=== PATIENT | female | born 1990 | race Caucasian/White ===

== ENCOUNTER 2016-06-29 17:37 | Emergency (ER) | payer BC, OTHER ==
[2016-06-29 18:01] VITALS: BP 124/53; PULSE 100; TEMP 98.8; BMI 21.4
--- NOTE | 2016-06-29 21:17 | PDOC ---
History of Present Illness - General Chief Complaint: Abscess Boil Stated Complaint: GROIN PAIN Time Seen by Provider: 06/29/16 21:06 - History of Present Illness Initial Comments: 06/29/16 23:18 not seen by Jocelynn COPE seen by LARON Garcia Past History - Past Medical History Allergies/Adverse Reactions: Allergies Allergy/AdvReac Type Severity Reaction Status Date / Time peanut Allergy Severe Difficulty Verified 06/29/16 17:47 Breathing Home Medications: Ambulatory Orders Cyclobenzaprine HCl [Flexeril -] 10 mg PO HS #7 tablet 01/18/14 Ibuprofen [Motrin -] 600 mg PO TID #21 tablet 01/18/14 Oxycodone HCl/Acetaminophen [Percocet 5-325 mg Tablet -] 1 - 2 tab PO Q6H #4 tablet 01/18/14 Cephalexin [Keflex] 500 mg PO TID #21 capsule 06/29/16 Other medical history: denies - Immunization History Immunization Up to Date: Yes - Psycho/Social/Smoking Cessation Hx Anxiety: No Suicidal Ideation: No Smoking Status: No Smoking History: Never smoked Have you smoked in the past 12 months: No Number of Cigarettes Smoked Daily: 0 Information on smoking cessation initiated: No Hx Alcohol Use: No Drug/Substance Use Hx: Yes Substance Use Type: Marijuana *Physical Exam - Vital Signs Last Vital Signs Temp Pulse Resp BP Pulse Ox 98.8 F 100 H 20 124/53 97 06/29/16 17:47 06/29/16 17:47 06/29/16 17:47 06/29/16 17:47 06/29/16 17:47 *DC/Admit/Observation/Transfer Diagnosis at time of Disposition: Abscess - Discharge Dispostion Disposition: HOME Condition at time of disposition: Improved - Prescriptions Prescriptions: Cephalexin [Keflex] 500 mg PO TID #21 capsule - Referrals Referrals: Gracie Magaña [Primary Care Provider] - - Patient Instructions Printed Discharge Instructions: DI for Incision and Drainage of a Skin Abscess Additional Instructions: Warm soaks/compresses Take tylenol as needed for pain Keflex 500mg take 1 tablet by mouth three times a day for 7 days Wound check in 2 days Return to the ER for any signs of further infection: red streaks, increase swelling, severe pain, increase drainage
[2016-06-29] MEDS ORDERED: ACETAMINOPHEN 500 MG TABLET (FP) PO ONE (22:10)
[2016-06-29] MEDS ORDERED: ACETAMINOPHEN 500 MG TABLET (FP) ONE (22:16)
--- NOTE | 2016-06-29 23:06 | PDOC ---
*Physical Exam - Vital Signs Last Vital Signs Temp Pulse Resp BP Pulse Ox 98.8 F 100 H 20 124/53 97 06/29/16 17:47 06/29/16 17:47 06/29/16 17:47 06/29/16 17:47 06/29/16 17:47 ED Treatment Course - ADDITIONAL ORDERS Additional order review: Laboratory Results 06/29/16 22:15 Urine HCG, Qual Negative - Medications Given in the ED: ED Medications Discontinued Medications Generic Name Dose Route Start Last Admin Trade Name Leonie PRN Reason Stop Dose Admin Acetaminophen 1,000 mg 06/29/16 22:10 06/29/16 22:24 Tylenol - PO 06/29/16 22:11 1,000 mg ONCE ONE Administration *DC/Admit/Observation/Transfer Diagnosis at time of Disposition: Abscess - Discharge Dispostion Disposition: HOME Condition at time of disposition: Improved - Patient Instructions Printed Discharge Instructions: DI for Incision and Drainage of a Skin Abscess Additional Instructions: Warm soaks/compresses Take tylenol as needed for pain Keflex 500mg take 1 tablet by mouth three times a day for 7 days Wound check in 2 days Return to the ER for any signs of further infection: red streaks, increase swelling, severe pain, increase drainage
== END 2016-06-29 23:13 | disposition home or self-care (01) ==
LOC: JERFT 17:37 → JER 17:37 → JERFT 23:13
PROC: 0U9LXZZ Drainage of Vestibular Gland, External Approach (ICD-10-PCS; principal; 2016-06-29)
DX: N75.1 Abscess of Bartholin's gland (principal)
CPT/HCPCS: 84703; 87070; 87186; 87205; 99281-25

== ENCOUNTER 2016-07-01 13:10 | Emergency (ER) | payer OTHER, BC ==
[2016-07-01 13:20] VITALS: BP 109/68; PULSE 75; TEMP 98.3; BMI 21.4
--- NOTE | 2016-07-01 14:08 | PDOC ---
History of Present Illness - General Chief Complaint: Revisit,Wound Recheck Stated Complaint: FOLLOW UP, WOUND CHECK Time Seen by Provider: 07/01/16 14:06 History Source: Patient Exam Limitations: No Limitations - History of Present Illness Initial Comments: 07/01/16 14:14 Chief complaint: Here for wound check of external vaginal area History of present illness: Patient is a 25 year old female with no significant medical problems here today for wound check of abscess that was I & D's here 2 days ago in her right external vaginal area. Patient reports that she shaved pubic hair in that area. She has been taking keflex antibiotic that was ordered. Reports that her boyfriend was recently treated for MRSA of the finger and face. Pt. has not had sex since last visit 06/29/16 when urine hcg was negative. Pt.' wound culture presumptive MRSA. 07/01/16 14:47 07/01/16 14:53 07/01/16 19:13 07/01/16 19:14 07/01/16 19:14 Timing/Duration: changing over time Severity: mild Associated Symptoms: reports: denies symptoms Past History - Past Medical History Allergies/Adverse Reactions: Allergies Allergy/AdvReac Type Severity Reaction Status Date / Time peanut Allergy Severe Difficulty Verified 07/01/16 13:17 Breathing Home Medications: Ambulatory Orders Cephalexin [Keflex] 500 mg PO TID #21 capsule 06/29/16 Sulfamethoxazole/Trimethoprim [Bactrim Ds -] 1 tab PO BID #14 tablet MDD 2 07/01 - Immunization History Immunization Up to Date: Yes - Psycho/Social/Smoking Cessation Hx Anxiety: No Suicidal Ideation: No Smoking Status: No Smoking History: Never smoked Have you smoked in the past 12 months: No Number of Cigarettes Smoked Daily: 0 Information on smoking cessation initiated: No Hx Alcohol Use: No Drug/Substance Use Hx: No Substance Use Type: None Review of Systems - Review of Systems Able to Perform ROS?: Yes Constitutional: No: Symptoms Reported HEENTM: No: Symptoms Reported Respiratory: No: Symptoms reported Cardiac (ROS): No: Symptoms Reported ABD/GI: No: Symptoms Reported : No: Symptoms Reported Musculoskeletal: No: Symptoms Reported Integumentary: Yes: Other (wound rt. external vagina area with packing (I&D here on 06/29/16) Neurological: No: Symptoms reported *Physical Exam - Vital Signs Last Vital Signs Temp Pulse Resp BP Pulse Ox 98.3 F 75 17 109/68 100 07/01/16 13:18 07/01/16 13:18 07/01/16 13:18 07/01/16 13:18 07/01/16 13:18 - Physical Exam General Appearance: Yes: Appropriately Dressed Integumentary: positive: Other (packing in place rt external vaginal area with no surrouding erythema or discharge, slight edema of surrounding area) Neurologic: positive: Alert, Normal Response, Responsive Procedures - Consent Consent obtained: From Patient - Additional Procedures Progress: 07/01/16 14:52 Packing removed from external vaginal area further discharge from wound noted, no surrounding erythema, slight edema of surrounding area irrigated with normal saline 0.9% and 4 x 4 placed in a area without tape Medical Decision Making - Medical Decision Making 07/01/16 14:48 Patient is a 25 year old female with no significant medical problems here today for wound check of abscess that was I & D's here 2 days ago in her right external vaginal area. Patient reports that she shaved pubic hair in that area. She has been taking keflex antibiotic that was ordered. Reports that her boyfriend was recently treated for MRSA of the finger and face. wound check external rt. vaginal area PLAN: packing removal from wound add BActrim DS one tab now than bid for 7 days 07/01/16 14:55 *DC/Admit/Observation/Transfer Diagnosis at time of Disposition: Visit for wound check - Discharge Dispostion Disposition: HOME Condition at time of disposition: Stable - Prescriptions Prescriptions: Sulfamethoxazole/Trimethoprim [Bactrim Ds -] 1 tab PO BID #14 tablet MDD 2 - Referrals Referrals: Gracie Magaña [Primary Care Provider] - - Patient Instructions Additional Instructions: You may cleanse wound as usual maybe with antibacterial soap and water Your BUSINESS TRAVEL CONSULTANT doctor within the next week Return to emergency room if symptoms worsen increased swelling of the area or fever or redness DO NOT SHAVE PUBIC AREA Patient voiced understanding of discharge instructions and all questions were answered
[2016-07-01] MEDS ORDERED: SULFAMETHOXAZOLE/TRIMETHOPRIM 800MG/160MG D.S. TABLET PO ONE (14:56)
[2016-07-01] MEDS ORDERED: SULFAMETHOXAZOLE/TRIMETHOPRIM 800MG/160MG D.S. TABLET ONE (14:59)
== END 2016-07-01 15:01 | disposition home or self-care (01) ==
LOC: JERFT 13:10
DX: Z48.01 Encounter for change or removal of surgical wound dressing (principal)
CPT/HCPCS: 99281-25

== ENCOUNTER 2017-10-02 00:22 | Emergency (ER) | payer BC, OTHER ==
[2017-10-02 00:56] VITALS: BP 126/64; PULSE 78; TEMP 98.6; BMI 22.8
== END 2017-10-02 01:35 | disposition left against medical advice (07) ==
LOC: JER 00:22
DX: Z53.21 Procedure and treatment not carried out due to patient leaving prior to being seen by health care provider (principal)
CPT/HCPCS: 99281-25

== ENCOUNTER 2017-10-02 01:42 | Emergency (ER) | payer BC, OTHER ==
[2017-10-02 01:52] VITALS: BP 111/65; PULSE 73; TEMP 98.7; BMI 22.8
--- NOTE | 2017-10-02 01:52 | PDOC ---
History of Present Illness - General Chief Complaint: Allergic Reaction Stated Complaint: EYE IRRITATION Time Seen by Provider: 10/02/17 01:52 History Source: Patient Exam Limitations: No Limitations - History of Present Illness Initial Comments: 10/02/17 01:56 This is a 26-year-old female who comes in complaining of ALLERGIES and her eyes are itchy, watery, and puffy. SHe is been taking Claritin once a day as well as some eyedrops. Patient comes in wondering if there is anything else she can take on put on her eyes to help with the symptoms. the patient denies any pain. Patient denies any fevers or chills. Patient denies any other complaints. PAST MEDICAL HISTORY: no significant history PAST SURGICAL HISTORY: no significant history FAMILY HISTORY: no pertinant history SOCIAL HISTORY: Pt lives with family and is employed. MEDICATIONS: reviewed ALLERGIES: As per nursing notes Review of Systems General: No fevers or chills, no weakness, no weight loss HEENT: No change in vision. No sore throat,. No ear pain, watery and itchy eyes CardioVascular: No chest pain or shortness of breath Respiratory:No cough, or wheezing. Gastrointestinal: no nausea, vomitting, diarrhea or constipation, No rectal bleeding Genitourinary: No dysuria, hematuria, or frequency Musculoskeletal: No joint or muscle pain or swelling Neurologic: No headache, vertigo, dizziness or loss of consciousness Psychiatric: nor depression Skin: No rashes or easy bruising Endocrine: no increased thirst or abnormal weight change Allergic: no skin or latex allergy All other systems reviewed and normal GENERAL: The patient is awake, alert, and fully oriented, in no acute distress. HEAD: Normal with no signs of trauma. EYES: Pupils equal, round and reactive to light, extraocular movements intact, sclera anicteric, conjunctiva clear. Periorbital tissue is some mild edema with erythema increased in warmth. EXTREMITIES: Normal range of motion, no edema. NEUROLOGICAL: Normal speech, normal gait. grossly intact PSYCH: Normal mood, normal affect. SKIN: Warm, Dry, normal turgor, no rashes or lesions noted. Assessment and plan: This is a 26-year-old female with ALLERGIES and her eyes itching and bothering her. Discussed with patient her [id number] options do not recommend that she take steroids as this is not a valid long-term solution. Recommended patient continue with her [id number] medications. Past History - Past Medical History Allergies/Adverse Reactions: Allergies Allergy/AdvReac Type Severity Reaction Status Date / Time peanut Allergy Severe Difficulty Verified 10/02/17 00:29 Breathing COPD: No - Immunization History Immunization Up to Date: Yes - Suicide/Smoking/Psychosocial Hx Smoking Status: No Smoking History: Never smoked Have you smoked in the past 12 months: No Number of Cigarettes Smoked Daily: 0 Hx Alcohol Use: No Drug/Substance Use Hx: Yes (marijuana) Substance Use Type: Marijuana *Physical Exam - Vital Signs Last Vital Signs Temp Pulse Resp BP Pulse Ox 98.7 F 73 16 111/65 100 10/02/17 01:43 10/02/17 01:43 10/02/17 01:43 10/02/17 01:43 10/02/17 01:43 *DC/Admit/Observation/Transfer Diagnosis at time of Disposition: Seasonal allergic conjunctivitis - Discharge Dispostion Disposition: HOME Condition at time of disposition: Good Admit: No - Referrals - Patient Instructions Additional Instructions: Continue to use the medications are [id number] including the Claritin or Sumaya, the eye drops and in addition you can also take Benadryl one or 2 tablets every 6 hours if needed Return to the emergency department immediately with ANY new, persistent or worsening symptoms. Continue any medications as previously prescribed by your physician. You should follow up with your primary doctor as soon as possible regarding today's emergency department visit. . Please make sure your doctor reviews the results of your emergency evaluation. Thank you for coming to the Emergency Department today for your care. It was a pleasure to see you today. Please note that your evaluation is INCOMPLETE until you follow-up with your doctor. - Post Discharge Activity
== END 2017-10-02 02:02 | disposition home or self-care (01) ==
LOC: FER 01:42
DX: H10.13 Acute atopic conjunctivitis, bilateral (principal)
CPT/HCPCS: 99282-25

== ENCOUNTER 2020-01-10 23:37 | Emergency (ER) | payer BC, OTHER ==
[2020-01-10 23:58] VITALS: BP 115/69; PULSE 83; TEMP 97.9; BMI 22.5
[2020-01-11] MEDS ORDERED: SODIUM CHLORIDE 0.9% 500 ML INFUS.BAG IV ONE (00:40)
[2020-01-11] MEDS ORDERED: FAMOTIDINE 20 MG/50 ML IVPB 20 MG/50 ML MG IVPB ONE (00:40)
[2020-01-11] MEDS ORDERED: MAG HYDROX/AL HYDROX/SIMETH -MYLANTA- ORAL SUSPENSION PO ONE (00:40)
[2020-01-11] MEDS ORDERED: LIDOCAINE VISCOUS 2% ORAL/TOP 20 ML UNIT-DOSE CUP MM ONE (00:40)
--- NOTE | 2020-01-11 00:41 | PDOC ---
History of Present Illness - General Chief Complaint: Chest Pain Stated Complaint: SOB/CHEST TIGHTNESS/NAUSEA/ Time Seen by Provider: 01/11/20 00:24 - History of Present Illness Initial Comments: Monica Bañuelos is a 29yo otherwise healthy woman who presents with epigastric pain and general malaise. She states that she had been feeling well throughout the day but had an episode of heartburn this evening that "came out of nowhere." She took pepto-bismol, which usually works for her heartburn, but only had minimal relief. She then felt a sensation of tightness in the epigastrium and became very anxious. She states that she started taking multiple deep breaths to calm herself down, but she then started to have tingling in her bilateral hands and face. The tingling has since spread to her back. She denies any numbness, weakness, lightheadedness, difficulty breathing, chest pain, or other symptoms. Ms Bañuelos does endorse frequent heartburn over the past week. She admits to eating fried fish and chips prior to experiencing heartburn tonight. 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 She started taking gingko supplements recently for the anxiety but takes no other medications or supplements, and she is otherwise feeling well. Past History - Medical History Allergies/Adverse Reactions: Allergies Allergy/AdvReac Type Severity Reaction Status Date / Time peanut Allergy Severe Difficulty Verified 01/10/20 23:56 Breathing COPD: No - Immunization History Immunization Up to Date: Yes - Psycho-Social/Smoking History Smoking Status: No Smoking History: Never smoked Have you smoked in the past 12 months: No Number of Cigarettes Smoked Daily: 0 Information on smoking cessation initiated: No 'Breaking Loose' booklet given: 10/02/17 - Substance Abuse Hx (Audit-C & DAST Scrn) How often the patient has a drink containing alcohol: Monthly or less How often the patient has six or more drinks on one occasion: Less than monthly Score: In Men: 4 or > Positive; In Women: 3 or > Positive: 2 Screen Result (Pos requires Nsg. Audit-10AR): Negative In the last yr the pt used illegal drug/Rx for NonMed reason: No Score: Yes response is considered Positive: 0 Screen Result (Positive result requires Nsg. DAST-10): Negative Review of Systems - Review of Systems Comments:: General: No fevers, no chills, no weight or appetite change, no malaise HEENT: No changes in vision, no changes in hearing, no congestion, no sore throat CV: No chest pain, no palpitations, no LE edema Pulm: No SOB, no cough, no wheezing GI: See HPI : No frequency, no urgency, no dysuria Musc: No back pain, no joint swelling, no recent injury Skin: No rash, no lesions, no erythema Endo: No excessive thirst, no heat/cold intolerance Heme: No unusual bruising or bleeding, no swollen glands Neuro: No syncope, +tingling in bilateral hands, back, and face. No focal weakness Vasc: No claudication Psych: No recent change in mood, no SI or HI *Physical Exam - Vital Signs Last Vital Signs Temp Pulse Resp BP Pulse Ox 97.9 F 83 16 115/69 100 01/10/20 23:53 01/10/20 23:53 01/10/20 23:53 01/10/20 23:53 01/10/20 23:53 - Physical Exam General: Comfortable, no acute distress HEENT: PERRL, EOMI, MMM, voice normal, normal neck ROM Cards: RRR, no murmur appreciated Pulm: Comfortable on room air, clear to auscultation bilaterally Abd: Soft, nondistended. Minimal epigastric and LUQ tenderness. No rebound, guarding, or peritoneal signs Ext: Atraumatic. No LE edema. ROM intact. WWP Skin: Normal color, no rashes or lesions Neuro: A&Ox3, CN grossly intact, normal speech, motor/sensory grossly intact and symmetric Psych: Mood appropriate to situation ED Treatment Course - LABORATORY CBC & Chemistry Diagram: 01/11/20 01:50 01/11/20 01:50 - RADIOLOGY Radiology Studies Ordered: Category Date Time Status CHEST PA & LAT [RAD] Stat Radiology 01/11/20 00:39 Ordered Medical Decision Making - Medical Decision Making 01/11/20 00:40 Monica Bañuelos is a 29yo otherwise healthy woman who presents with epigastric discomfort followed by diffuse tingling in her hands, face, and back. - Epigastric discomfort likely due to GERD/gastritis, secondary to fatty food today. Benign abdominal exam, unlikely cholecystitis/cholelithiasis, pancreatitis. No SOB, hypoxia, chest pain or other concerning symptoms - Diffuse tingling may be due to pt hyperventilating as she reports purposefully taking numerous deep breaths - CBC, CMP, CXR, EKG, preg - Pepcid, maalox 01/11/20 02:42 - Labs unremarkable - Urine preg negative - CXR to be completed - EKG w/ NSR, HR 66, normal axis, normal intervals, no t-wave or ST abnormalities. Normal EKG - Pt feeling improved - Plan to DC home pending xray results 01/11/20 03:16 - Xray without concerning findings - Will d/c with PMD follow up Discussed with Dr Shandra Varela PGY3 Discharge - Discharge Information Problems reviewed: Yes Clinical Impression/Diagnosis: Heartburn, Epigastric abdominal pain Condition: Stable Disposition: HOME - Admission No - Follow up/Referral Referrals: Donn Carmichael DO [Staff Physician] - - Patient Discharge Instructions Patient Printed Discharge Instructions: DI for Epigastric Pain Additional Instructions: Discharge Instructions: You were seen in the emergency department for heartburn and for lower chest/upper abdominal (epigastric) pain. Your blood tests, EKG, and chest xray did not show any concerning findings. Your symptoms improved with acid medication. Home Care and follow up: - You reported having heartburn frequently over the past week. Consider taking an acid medication such as Pepcid (famotidine) every day for the next 1-2 weeks until your symptoms resolve. This medication is available over the counter. - If you have continued symptoms, you may additionally take Maalox or Mylanta as needed. - Avoid greasy, spicy, or acidic foods or beverages, alcohol, and caffeine. These often worsen symptoms - Follow up with your regular doctor within the next 1-2 weeks - Seek immediate care for worsening symptoms, chest pain, difficulty breathing, lightheadedness, or any other medical emergency. - Post Discharge Activity
--- NOTE | 2020-01-11 00:51 | PDOC ---
Attending Attestation - Resident Resident Name: NicholeEliana - ED Attending Attestation I have performed the following: I have examined & evaluated the patient, The case was reviewed & discussed with the resident, I agree w/resident's findings & plan - HPI HPI: 01/11/20 01:45 29yo otherwise healthy woman who presents with epigastric pain and general malaise, dizziness, SOB. She states that she had been feeling well throughout the day but had an episode of heartburn this evening that "came out of nowhere." She ate fish and chips earlier this evening. She took pepto-bismol, which usually works for her heartburn, but only had minimal relief. She then felt a sensation of tightness in the epigastrium and became very anxious. She states that she started taking multiple deep breaths to calm herself down, but she then started to have tingling in her bilateral hands and face. The tingling has since spread to her back. She denies any numbness, weakness, lightheadedness, difficulty breathing, chest pain, or other symptoms. She admits to frequent heartburn over the past week. 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 She started taking gingko supplements recently for the anxiety but takes no other medications or supplements, and she is otherwise feeling well. - Physicial Exam PE: 01/11/20 00:50 Agree with the resident's HPI and PE as documented in the electronic medical record. NAD, well appearing, anxious, EOMI, PERRL, nl conjunctiva, anicteric; cranial nerves II through XII normal, neck supple. lungs clear, RRR, abdomen soft nontender. no rebound, guarding. Back nontender. GRACE x4, no focal neuro deficits. No peripheral edema. normal color for ethnicity, WWP. no calf tenderness. 01/11/20 03:26 - Medical Decision Making 01/11/20 00:51 Vital Signs Temp Pulse Resp BP Pulse Ox 97.9 F 83 16 115/69 100 01/10/20 23:53 01/10/20 23:53 01/10/20 23:53 01/10/20 23:53 01/10/20 23:53 01/11/20 00:51 vitals reviewed, wnl, reassuring. no respiratory distress nontoxic, no systemic findings DDx chest pain: ACS, coronary vasospasm, NSTEMI, arrhythmia, unstable angina, PE, dissection, PUD, esophageal spasm, GERD, gastritis, costochondritis, pneumonia, pleurisy, pericarditis/myocarditis. dehydration, electrolyte/me tabolic derangements. Considered but clinically doubt based on HPI and PE: Low suspicion for pulmonary embolism or dissection. perc negative, so unlikely PE. Interpreted by ED Physician: CXR (2 view): no acute abnormality: no infiltrates, bones appear intact and structures normal alignment, cardiac silhouette within normal limits. no free air under diaphragm, no pneumothorax. EKG normal sinus rhythm 66 beats per, no interval abnormalities, narrow QRS, ST and T wave segments and morphology normal. Chest pain HEART score 0 which denotes Low risk and probability for ACS, less than 1.7% risk for MACE at 4-6 wks No evidence of ACS, pericarditis, myocarditis, pulmonary embolism, pneumothorax, pneumonia, Zoster, or esophageal perforation. Historically not abrupt in onset, tearing or ripping, pulses symmetric, no evidence of aortic dissection. DC stable condition, return precautions. supportive care, hydration, relaxation, biofeedback, minimize triggers/food related exacerbants for her GERD/epigastric sx. PCP followup as needed 01/11/20 03:26 Heart Score/ECG Review - History History: Slightly suspicious - Electrocardiogram EKG: Normal - Age Age: </= 45 - Risk Factors Based on the list above the patient has:: No risk factors known - Troponin Troponin: </= normal limit - Score Heart Score - Total: 0 #1 ECG reviewed & interpreted by me at: 23:55 General ECG Interpretation: Sinus Rhythm, Normal Rate, Normal Intervals 01/11/20 01:48 EKG normal sinus rhythm 66 beats per, no interval abnormalities, narrow QRS, ST and T wave segments and morphology normal. Discharge - Discharge Information Problems reviewed: Yes Clinical Impression/Diagnosis: Heartburn, Epigastric abdominal pain Condition: Stable Disposition: HOME - Admission No - Follow up/Referral - Patient Discharge Instructions Patient Printed Discharge Instructions: DI for Epigastric Pain Additional Instructions: Discharge Instructions: You were seen in the emergency department for heartburn and for lower chest/upper abdominal (epigastric) pain. Your blood tests, EKG, and chest xray did not show any concerning findings. Your symptoms improved with acid medication. Home Care and follow up: - You reported having heartburn frequently over the past week. Consider taking an acid medication such as Pepcid (famotidine) every day for the next 1-2 weeks until your symptoms resolve. This medication is available over the counter. - If you have continued symptoms, you may additionally take Maalox or Mylanta as needed. - Avoid greasy, spicy, or acidic foods or beverages, alcohol, and caffeine. These often worsen symptoms - Follow up with your regular doctor within the next 1-2 weeks - Seek immediate care for worsening symptoms, chest pain, difficulty breathing, lightheadedness, or any other medical emergency. - Post Discharge Activity
[2020-01-11] MEDS ORDERED: FAMOTIDINE 20 MG TABLET PO ONE (01:44)
[2020-01-11] MEDS ORDERED: LIDOCAINE VISCOUS 2% ORAL/TOP 20 ML UNIT-DOSE CUP ONE (01:48)
[2020-01-11] MEDS ORDERED: FAMOTIDINE 20 MG TABLET ONE (01:48)
[2020-01-11] MEDS ORDERED: MAG HYDROX/AL HYDROX/SIMETH 30 ML UNIT-DOSE CUP ONE (01:49)
[2020-01-11 02:05] LABS: BASO % 1.3 % (0-2.0); EOS % 2.7 % (0-4.5); HEMATOCRIT 40.8 % (32.4-45.2); HEMOGLOBIN 13.7 GM/dL (10.7-15.3); LYMPH % 36.2 % (8-40); MCH 29.5 pg (25.7-33.7); MCHC 33.6 g/dl (32.0-36.0); MEAN CELL VOLUME 87.7 fl (80-96); MEAN PLT VOLUME 8.7 fl (7.5-11.1); MONO % 6.4 % (3.8-10.2); NEUT % 53.4 % (42.8-82.8); PLATELET COUNT 197 K/MM3 (134-434); RBC 4.65 M/mm3 (3.60-5.2); WHITE BLOOD COUNT 8.3 K/mm3 (4.0-10.0)
[2020-01-11 02:36] LABS: ALBUMIN 4.1 g/dl (3.4-5.0); BILIRUBIN,TOTAL 0.3 mg/dL (0.2-1); BLOOD UREA NITROGEN 10.3 mg/dL (7-18); CALCIUM 9.2 mg/dL (8.5-10.1); CREATININE 0.7 mg/dL (0.55-1.3); POTASSIUM 3.8 mmol/L (3.5-5.1); TOT PROT 7.1 g/dl (6.4-8.2)
--- NOTE | 2020-01-11 09:09 | EKG ---
Test Reason : Blood Pressure : / mmHG Vent. Rate : 066 BPM Atrial Rate : 066 BPM P-R Int : 180 ms QRS Dur : 090 ms QT Int : 394 ms P-R-T Axes : 004 066 039 degrees QTc Int : 413 ms NORMAL SINUS RHYTHM NORMAL ECG WHEN COMPARED WITH ECG OF 17-MAR-2012 04:31, NO SIGNIFICANT CHANGE WAS FOUND Confirmed by Brian Rivera ([id number]) on 01/11/2020 9:08:42 AM Referred By: Confirmed By:Brian Rivera
== END 2020-01-11 03:40 | disposition home or self-care (01) ==
LOC: JER 23:37
DX: R10.13 Epigastric pain (principal)
CPT/HCPCS: 36415; 71046-TC-FY; 80053; 84703; 85025; 93005; 93010; 99285-25

== ENCOUNTER 2024-05-19 00:49 | Emergency (ER) | payer OTHER ==
[2024-05-19 01:01] VITALS: BP 134/82; PULSE 72; RESP 16; TEMP 98.7; BMI 25.1
[2024-05-19] MEDS ORDERED: morphine SULFATE 4 MG/ML VIAL ONE ×2 (01:13→01:58)
[2024-05-19] MEDS ORDERED: ONDANSETRON 4 MG/2 ML VIAL ONE ×2 (01:13→02:30)
[2024-05-19] MEDS: morphine CARPU-JECT 4 MG/1 ML DISP.SYRIN IVPUSH ONE ×2 (01:29→02:04)
[2024-05-19] MEDS: ONDANSETRON 4 MG/2 ML VIAL IVPUSH ONE ×2 (01:30→02:36)
[2024-05-19 01:38] LABS: BASO % 2.1 % (0-2.0); EOS % 1.5 % (0-4.5); HEMATOCRIT 43.4 % (32.4-45.2); HEMOGLOBIN 14.2 GM/dL (10.7-15.3); LYMPH % 24.3 % (8-40); MCH 28.3 pg (25.7-33.7); MCHC 32.6 g/dl (32.0-36.0); MEAN CELL VOLUME 86.7 fl (80-96); MEAN PLT VOLUME 8.3 fl (7.5-11.1); MONO % 6.4 % (3.8-10.2); NEUT % 65.7 % (42.8-82.8); PLATELET COUNT 228 10^3/uL (134-434); RBC 5.01 M/mm3 (3.60-5.2); RDW 13.6 % (11.6-15.6); WHITE BLOOD COUNT 9.4 K/mm3 (4.0-10.0)
[2024-05-19 01:42] LABS: INR 0.83 (0.83-1.09); PROTHROMBIN TIME (PATIENT) 9.4 SEC (9.7-13.0)
[2024-05-19 01:44] LABS: ACTIVATED PTT 33.6 SECONDS (25.2-36.5)
[2024-05-19 01:59] LABS: CHLORIDE 107 mmol/L (98-107); SODIUM 125 mmol/L (136-145)
[2024-05-19 02:02] LABS: ALBUMIN 3.6 g/dl (3.4-5.0); BLOOD UREA NITROGEN 8.7 mg/dL (7-18); CO2 23 mmol/L (21-32); GLUCOSE,RANDOM 87 mg/dL (74-106)
[2024-05-19 02:05] LABS: CREATININE 0.7 mg/dL (0.55-1.3); SGOT/AST 17 U/L (15-37); SGPT/ALT 19 U/L (13-61)
[2024-05-19 02:07] LABS: BILIRUBIN,TOTAL 0.3 mg/dL (0.2-1); TOT PROT 6.6 g/dl (6.4-8.2)
[2024-05-19 02:08] LABS: ALK PHOS 39 U/L (45-117)
[2024-05-19 02:20] LABS: LACTIC ACID 3.2 mmol/L (0.4-2.0)
[2024-05-19] MEDS ORDERED: HYDROmorphone HCl 2 MG/ML VIAL ONE (02:29)
[2024-05-19] MEDS: HYDROmorphone HCl 2 MG/ML VIAL IVPUSH ONE (02:36)
[2024-05-19 02:47] LABS: ANION GAP -6 mmol/L (4-13); POTASSIUM > 10.0 mmol/L (3.5-5.1)
[2024-05-19] MEDS ORDERED: KETOROLAC TROMETHAMINE 15 MG/ML VIAL ONE (03:03)
[2024-05-19] MEDS: SODIUM CHLORIDE 1,000 ML IV STA (03:10)
[2024-05-19] MEDS: KETOROLAC TROMETHAMINE 15 MG/ML VIAL IVPUSH ONE (03:10)
[2024-05-19 04:55] LABS: HCG,QUALITATIVE URINE Negative
[2024-05-19 05:15] LABS: POTASSIUM 3.5 mmol/L (3.5-5.1)
[2024-05-19 05:16] LABS: CALCIUM 8.5 mg/dL (8.5-10.1)
[2024-05-19 05:20] LABS: CREATININE 0.7 mg/dL (0.55-1.3)
[2024-05-19 05:36] LABS: EPI CELLS >36 /uL (0-25.1); HYALINE CASTS 1 /uL (0-3.1); PH,URINE >= 9.0 (5.0-8.0); URINE APPEARANCE CLEAR; URINE BACTERIA 129 /uL (0-1359); URINE BILIRUBIN NEGATIVE (NEGATIVE); URINE COLOR YELLOW; URINE GLUCOSE (UA) NEGATIVE (NEGATIVE); URINE KETONE 1+ (NEGATIVE); URINE LEUK ESTERASE NEGATIVE (NEGATIVE); URINE NITRITE NEGATIVE (NEGATIVE); URINE PROTEIN 1+ (NEGATIVE); URINE RBC 78 /uL (0-23.9); URINE UROBILINOGEN 0.2 mg/dL (0.2-1.0); URINE WBC 20 /uL (0-25.8)
[2024-05-19 14:43] LABS: HIV INTERPRETATION NEGATIVE (NEGATIVE)
== END 2024-05-19 06:04 | disposition home or self-care (01) ==
LOC: JER 00:49
PROC: 3E033NZ Introduction of Analgesics, Hypnotics, Sedatives into Peripheral Vein, Percutaneous Approach (ICD-10-PCS; principal; 2024-05-19)
PROC: 3E0333Z Introduction of Anti-inflammatory into Peripheral Vein, Percutaneous Approach (ICD-10-PCS; 2024-05-19)
PROC: 3E033NZ Introduction of Analgesics, Hypnotics, Sedatives into Peripheral Vein, Percutaneous Approach (ICD-10-PCS; 2024-05-19)
PROC: 3E033NZ Introduction of Analgesics, Hypnotics, Sedatives into Peripheral Vein, Percutaneous Approach (ICD-10-PCS; 2024-05-19)
PROC: 3E033GC Introduction of Other Therapeutic Substance into Peripheral Vein, Percutaneous Approach (ICD-10-PCS; 2024-05-19)
PROC: 3E033GC Introduction of Other Therapeutic Substance into Peripheral Vein, Percutaneous Approach (ICD-10-PCS; 2024-05-19)
DX: O03.9 Complete or unspecified spontaneous abortion without complication (principal); R10.84 Generalized abdominal pain; R00.0 Tachycardia, unspecified; R11.2 Nausea with vomiting, unspecified
CPT/HCPCS: 36415; 74177-TC; 76830-TC; 80048; 80053; 81003; 83605; 84702; 84703; 85025; 85610; 85730; 86803; 86850; 86900; 86901; 87086; 87389; 96361; 96374; 96375; 96376; 99285-25